=== PATIENT | female | born 1945 | race Caucasian/White ===

== ENCOUNTER 2021-09-07 12:23 | Inpatient (IN) | payer MEDICARE ==
[2021-09-07] MEDS ORDERED: Ondansetron PF 4 MG/2 ML Vial ONE (12:58)
[2021-09-07] MEDS ORDERED: Magnesium 2 GM/50 ML BAG (IN WATER) ONE (13:07)
[2021-09-07 13:13] LABS: #Basophils 0.1 10x3/uL (0.0-0.2); #Eosinphils 0.3 10x3/uL (0.0-0.5); #Monocytes 0.9 10x3/uL (0.0-1.1); #Neutrophils 6.6 10x3/uL (1.5-8.4); %Basophils 0.7 % (0.0-2.0); %Eosinophils 2.3 % (0.0-6.0); %Lymphocytes 25.9 % (18.0-47.0); %Monocytes 8.3 % (0.0-10.0); %Neutrophils 62.3 % (40.0-75.0); Hemoglobin 16.5 g/dL (12.0-15.5); Mean Corpuscular HGB CONC 32.4 g/dL (32.0-36.0); Mean Corpuscular Hemoglobin 29.6 pg (27.0-33.0); Mean Corpuscular Volume 91.6 fl (81.6-98.3); Mean Platelet Volume 10.5 fl (7.4-10.4); Platelet Count 280 10x3/uL (150-450); RBC Distribution Width 13.5 % (11.5-14.5); Red Blood Cell (RBC) Count 5.57 10x6/uL (3.90-5.03); White Blood Cell (WBC) Count 10.6 10x3/uL (3.5-10.5)
[2021-09-07] MEDS ORDERED: Nitroglycerin 2% Ointment 1 INCH/1 GM Packet ONE (13:15)
[2021-09-07 13:25] LABS: PTT 23.3 sec (22.0-33.0); Prothrombin Time 10.7 sec (9.5-12.1)
[2021-09-07 13:28] LABS: ALT (SGPT) 21 U/L (8-55); AST (SGOT) 21 U/L (5-34); Albumin 4.7 g/dL (3.4-4.8); Alkaline Phosphatase 91 U/L (40-110); Anion Gap 16 mmol/L (10-20); BUN (Urea Nitrogen) 26 mg/dL (9.8-20.1); Bilirubin, Total 0.9 mg/dL (0.2-1.2); Calc. Creatinine Clearance 0 mL/min (70-130); Calcium 10.5 mg/dL (7.8-10.44); Carbon Dioxide 28 mmol/L (23-31); Chloride 104 mmol/L (98-107); Globulin 2.7 g/dL (2.4-3.5); Glucose 125 mg/dL (83-110); Potassium 3.3 mmol/L (3.5-5.1); Protein, Total 7.4 g/dL (5.8-8.1); Sodium 145 mmol/L (136-145)
[2021-09-07 13:39] LABS: Magnesium 2.6 mg/dL (1.6-2.6)
[2021-09-07] MEDS ORDERED: Aspirin 325 MG TAB ONE (13:54)
[2021-09-07] MEDS ORDERED: Potassium Chloride 20 MEQ TAB ONE (15:59)
[2021-09-07] MEDS ORDERED: Ondansetron ODT 4 MG TAB PO PRN (18:37)
[2021-09-07] MEDS ORDERED: Ondansetron PF 4 MG/2 ML Vial IVP PRN (18:37)
[2021-09-07] MEDS ORDERED: Acetaminophen 650 MG Suppository PR PRN (18:37)
[2021-09-07] MEDS ORDERED: NS 0.9% w/ 40 MEQ KCL 1,000 ML IV SCH (18:45)
[2021-09-07] MEDS ORDERED: hydrALAZINE 20 MG/ML VIAL SLOW IVP PRN (19:20)
[2021-09-07 19:22] VITALS: BMI 31.4
[2021-09-07] MEDS ORDERED: Potassium Chloride 20 MEQ TAB PO SCH (20:00)
[2021-09-07] MEDS: Acetaminophen 325 MG TAB PO PRN (20:13)
[2021-09-07] MEDS: Melatonin 3 MG TAB PO SCH (20:14)
[2021-09-07 21:22] LABS: SARS-CoV-2 NAA Rapid Test Not Detected (NotDetected)
[2021-09-08] MEDS: Acetaminophen 325 MG TAB PO PRN ×4 (01:04→21:48)
[2021-09-08 04:23] LABS: #Eosinphils 0.1 10x3/uL (0.0-0.5); #Monocytes 0.7 10x3/uL (0.0-1.1); #Neutrophils 6.9 10x3/uL (1.5-8.4); %Basophils 0.5 % (0.0-2.0); %Eosinophils 1.3 % (0.0-6.0); %Lymphocytes 9.3 % (18.0-47.0); %Monocytes 7.8 % (0.0-10.0); %Neutrophils 80.6 % (40.0-75.0); Hemoglobin 14.1 g/dL (12.0-15.5); Mean Corpuscular HGB CONC 31.3 g/dL (32.0-36.0); Mean Corpuscular Hemoglobin 29.3 pg (27.0-33.0); Mean Corpuscular Volume 93.6 fl (81.6-98.3); Mean Platelet Volume 10.4 fl (7.4-10.4); Platelet Count 185 10x3/uL (150-450); RBC Distribution Width 13.5 % (11.5-14.5); Red Blood Cell (RBC) Count 4.81 10x6/uL (3.90-5.03); White Blood Cell (WBC) Count 8.5 10x3/uL (3.5-10.5)
[2021-09-08 04:33] LABS: Anion Gap 13 mmol/L (10-20); BUN (Urea Nitrogen) 17 mg/dL (9.8-20.1); Calc. Creatinine Clearance 67 mL/min (70-130); Carbon Dioxide 27 mmol/L (23-31); Chloride 109 mmol/L (98-107); Glucose 107 mg/dL (83-110); Potassium 4.9 mmol/L (3.5-5.1); Sodium 144 mmol/L (136-145)
[2021-09-08] MEDS ORDERED: Aspirin 81 mg Enteric Coated Tablet PO SCH (09:00)
[2021-09-08] MEDS: Clopidogrel Bisulfate 75 MG TAB PO SCH (11:33)
[2021-09-08] MEDS ORDERED: Metoprolol Tartrate 50 MG TAB PO SCH ×2 (13:00→21:00)
[2021-09-08] MEDS: Melatonin 3 MG TAB PO SCH (21:48)
[2021-09-08] MEDS: Metoprolol Tartrate 50 MG TAB PO SCH (21:48)
[2021-09-09 04:29] LABS: #Basophils 0.1 10x3/uL (0.0-0.2); #Eosinphils 0.1 10x3/uL (0.0-0.5); #Monocytes 0.7 10x3/uL (0.0-1.1); #Neutrophils 6.5 10x3/uL (1.5-8.4); %Basophils 0.6 % (0.0-2.0); %Lymphocytes 10.9 % (18.0-47.0); %Monocytes 8.6 % (0.0-10.0); %Neutrophils 78.7 % (40.0-75.0); Hemoglobin 14.2 g/dL (12.0-15.5); Mean Corpuscular HGB CONC 30.9 g/dL (32.0-36.0); Mean Corpuscular Hemoglobin 29.3 pg (27.0-33.0); Mean Corpuscular Volume 94.8 fl (81.6-98.3); Mean Platelet Volume 10.7 fl (7.4-10.4); Platelet Count 194 10x3/uL (150-450); RBC Distribution Width 13.9 % (11.5-14.5); Red Blood Cell (RBC) Count 4.84 10x6/uL (3.90-5.03); White Blood Cell (WBC) Count 8.3 10x3/uL (3.5-10.5)
[2021-09-09 04:51] LABS: ALT (SGPT) 15 U/L (8-55); AST (SGOT) 17 U/L (5-34); Albumin 3.8 g/dL (3.4-4.8); Alkaline Phosphatase 73 U/L (40-110); Anion Gap 12 mmol/L (10-20); BUN (Urea Nitrogen) 14 mg/dL (9.8-20.1); Bilirubin, Total 1.3 mg/dL (0.2-1.2); Calc. Creatinine Clearance 67 mL/min (70-130); Calcium 9.9 mg/dL (7.8-10.44); Carbon Dioxide 26 mmol/L (23-31); Chloride 106 mmol/L (98-107); Globulin 2.6 g/dL (2.4-3.5); Glucose 104 mg/dL (83-110); Magnesium 2.3 mg/dL (1.6-2.6); Phosphorus 2.9 mg/dL (2.3-4.7); Potassium 4.5 mmol/L (3.5-5.1); Protein, Total 6.4 g/dL (5.8-8.1); Sodium 139 mmol/L (136-145)
[2021-09-09] MEDS: Levothyroxine Sodium 75 MCG TAB PO SCH (06:49)
[2021-09-09] MEDS: Acetaminophen 325 MG TAB PO PRN ×2 (09:44→15:27)
[2021-09-09] MEDS: Metoprolol Tartrate 50 MG TAB PO SCH (09:46)
[2021-09-09] MEDS: Aspirin 81 mg Enteric Coated Tablet PO SCH (09:46)
[2021-09-09] MEDS: Clopidogrel Bisulfate 75 MG TAB PO SCH (09:46)
[2021-09-09] MEDS: Amiodarone 200 MG TAB PO SCH (09:47)
[2021-09-09] MEDS: Furosemide 40 MG TAB PO SCH (09:47)
[2021-09-09 10:33] LABS: Bilirubin Neg (Negative); Blood, Urine 10 (Negative); Clarity Clear (Clear); Glucose, Urine (Dipstick) Normal (Negative); Ketone, Urine Negative (Negative); Leukocyte 25 (Negative); Nitrite Negative (Negative); Protein, Urine (Dipstick) 15 mg/dl (Neg-Trace); Specific Gravity, Urine 1.015 (1.002-1.036); Urobilinogen Normal mg/dL (Less than 2); pH, Urine 6.5 (5.0-9.0)
[2021-09-09 10:37] LABS: Urine Culture Reflex No No
[2021-09-09 11:06] LABS: Bacteria/HPF 1+ HPF (None Seen); RBC/HPF 0-3 HPF (0-3); Squamous Epithelial 0-3 HPF (0-3); WBC/HPF 0-3 HPF (0-3)
[2021-09-09] MEDS ORDERED: cefTRIAXone\\ROCEPHIN 2 GM in Sodium Chloride 0.9% 100 ML IVPB SCH (15:00)
[2021-09-09] MEDS ORDERED: Azithromycin 500 MG in Sodium Chloride 0.9% 250 ML 250 ML IVPB SCH (17:00)
[2021-09-09 17:16] LABS: Legionella Urinary Ag Negative (Negative); Strep pneumo Urine Ag POSITIVE (NEGATIVE)
[2021-09-09] MEDS ORDERED: diphenhydrAMINE 25 MG CAP PO PRN (21:13)
[2021-09-09] MEDS: Melatonin 3 MG TAB PO SCH (21:51)
[2021-09-10 04:06] LABS: #Basophils 0.1 10x3/uL (0.0-0.2); #Eosinphils 0.2 10x3/uL (0.0-0.5); #Monocytes 0.6 10x3/uL (0.0-1.1); #Neutrophils 5.5 10x3/uL (1.5-8.4); %Basophils 0.7 % (0.0-2.0); %Eosinophils 2.1 % (0.0-6.0); %Lymphocytes 11.3 % (18.0-47.0); %Monocytes 7.7 % (0.0-10.0); %Neutrophils 77.9 % (40.0-75.0); Mean Corpuscular HGB CONC 31.7 g/dL (32.0-36.0); Mean Corpuscular Hemoglobin 29.5 pg (27.0-33.0); Mean Corpuscular Volume 92.8 fl (81.6-98.3); Mean Platelet Volume 10.8 fl (7.4-10.4); Platelet Count 175 10x3/uL (150-450); RBC Distribution Width 13.5 % (11.5-14.5); Red Blood Cell (RBC) Count 4.75 10x6/uL (3.90-5.03); White Blood Cell (WBC) Count 7.1 10x3/uL (3.5-10.5)
[2021-09-10 04:18] LABS: ALT (SGPT) 17 U/L (8-55); AST (SGOT) 20 U/L (5-34); Albumin 3.7 g/dL (3.4-4.8); Alkaline Phosphatase 71 U/L (40-110); Anion Gap 12 mmol/L (10-20); BUN (Urea Nitrogen) 15 mg/dL (9.8-20.1); Bilirubin, Total 0.7 mg/dL (0.2-1.2); Calc. Creatinine Clearance 62 mL/min (70-130); Calcium 9.5 mg/dL (7.8-10.44); Carbon Dioxide 28 mmol/L (23-31); Chloride 106 mmol/L (98-107); Globulin 2.6 g/dL (2.4-3.5); Glucose 108 mg/dL (83-110); Potassium 3.8 mmol/L (3.5-5.1); Protein, Total 6.3 g/dL (5.8-8.1); Sodium 142 mmol/L (136-145)
[2021-09-10] MEDS: Levothyroxine Sodium 75 MCG TAB PO SCH (05:32)
[2021-09-10] MEDS: Acetaminophen 325 MG TAB PO PRN (06:16)
[2021-09-10] MEDS ORDERED: Enoxaparin Sodium 40 MG/0.4 ML SYRINGE SC SCH (09:00)
[2021-09-10] MEDS ORDERED: Lisinopril 10 MG TAB PO SCH (09:00)
[2021-09-10] MEDS ORDERED: Amlodipine 5 MG TAB PO SCH (09:00)
[2021-09-10] MEDS: Aspirin 81 mg Enteric Coated Tablet PO SCH (09:25)
[2021-09-10] MEDS: Clopidogrel Bisulfate 75 MG TAB PO SCH (09:25)
[2021-09-10] MEDS: Amiodarone 200 MG TAB PO SCH (09:25)
[2021-09-10] MEDS: Furosemide 40 MG TAB PO SCH (09:25)
[2021-09-10 12:09] VITALS: BP 151/67; TEMP 98.2
[2021-09-10] MEDS ORDERED: Metoprolol Tartrate 50 MG TAB PO SCH (21:00)
[2021-09-13 23:36] LABS: Mycoplasma pneumoniae IgG AB 137 U/mL (0-99); Mycoplasma pneumoniae IgM AB Less than 770 U/mL (0-769)
== END 2021-09-10 14:08 | disposition home or self-care (01) | DRG 193 ==
LOC: CSHERS 12:23 → CSHTELE 12:24 → OBSVTOIN 09-09 12:15
PROVIDERS: ADMIT Family Medicine; ATTEND Family Medicine
DX: J18.9 Pneumonia, unspecified organism (principal); J96.01 Acute respiratory failure with hypoxia; I50.32 Chronic diastolic (congestive) heart failure; Z20.822 Contact with and (suspected) exposure to COVID-19; E86.0 Dehydration; I11.0 Hypertensive heart disease with heart failure; E87.6 Hypokalemia; E03.9 Hypothyroidism, unspecified; R00.1 Bradycardia, unspecified; I48.0 Paroxysmal atrial fibrillation; K74.60 Unspecified cirrhosis of liver; F41.9 Anxiety disorder, unspecified; E78.5 Hyperlipidemia, unspecified; Z96.651 Presence of right artificial knee joint; Z79.82 Long term (current) use of aspirin; Z79.02 Long term (current) use of antithrombotics/antiplatelets; Z79.899 Other long term (current) drug therapy; Z95.818 Presence of other cardiac implants and grafts
CPT/HCPCS: 0240U; 36415; 36416; 70450; 71045; 71275; 74174; 76705; 80048; 80053; 81001; 82150; 83605; 83690; 83735; 83880; 84100; 84145; 84443; 84484; 85025; 85610; 85730; 86140; 87040; 87086; 87449; 87899; 93005; 93010; 93306; 94760; 96365; 96375; G0378; J0360; J0456; J0696; J1650; J2405; J3475; J3490; J7050